=== PATIENT | male | born 1955 | race Caucasian/White ===

== ENCOUNTER → 2024-11-23 09:37 | Outpatient (BNVA) | payer MEDICARE, OTHER, SELFPAY | PROVIDERS: PCP Family Medicine; Visit Provider Student in an Organized Health Care Education/Training Program | DX: Z12.11 Encounter for screening for malignant neoplasm of colon (principal) | CPT/HCPCS: 99024; 99204 ==

== ENCOUNTER → 2024-11-28 14:43 | Outpatient (BNVA) | payer MEDICARE, OTHER, SELFPAY | PROVIDERS: PCP Family Medicine; Referring Provider Nurse Practitioner Family; Visit Provider Student in an Organized Health Care Education/Training Program | DX: M25.551 Pain in right hip (principal); M25.552 Pain in left hip; M16.11 Unilateral primary osteoarthritis, right hip | CPT/HCPCS: 73523; 99204 ==

== ENCOUNTER 2024-12-10 14:49 | Outpatient (CLI) | payer MEDICARE, OTHER, SELFPAY ==
--- NOTE | 2024-12-10 15:15 | CT_ITS ---
WS: [id number] CT RIGHT hip for [facility] procedure HISTORY: RIGHT TOTAL HIP ARTHROPLASTY-POSTERIOR COMPARISON: None available. TECHNIQUE: Protocol for [facility] total hip replacement has been obtained. This includes axial imaging from the hip joint through the knee joint. DLP: 954.95 mGy FINDINGS: No acute fracture. Osteopenia. Mild bilateral SI joint arthritis. Bilateral degenerative joint disease involving the hips, RIGHT greater than LEFT. More significant acetabular rim and osteophytic ridging around the RIGHT femoral head. RIGHT knee: Very mild narrowing of the knee joint. Slight lateral subluxation of the RIGHT patella. CT/CT hip RT [facility] [id number] IMPRESSION: CT imaging provided for [facility] robotic total knee replacement.
== END 2024-12-10 14:50 | disposition home or self-care (01) ==
LOC: RAD 14:50
PROVIDERS: PCP Family Medicine; Visit Provider Student in an Organized Health Care Education/Training Program
DX: M16.11 Unilateral primary osteoarthritis, right hip (principal); Z01.89 Encounter for other specified special examinations
CPT/HCPCS: 73700

== ENCOUNTER 2024-12-18 06:19 | Day surgery (SDC) | payer MEDICARE, OTHER, SELFPAY ==
[2024-12-18 06:36] VITALS: BP 149/82; PULSE 66; RESP 18; TEMP 36.4; O2SAT 96; BMI 41.0
--- NOTE | 2024-12-18 06:55 | ANES.PREANE2 ---
Pre-Anesthetic Assessment Height/Weight: Height 5 ft 8 in Weight 270 lb Temp Pulse Resp BP Pulse Ox O2 Del Method 97.6 F 66 18 149/82 96 Room Air 12/18/24 06:36 12/18/24 06:36 12/18/24 06:36 12/18/24 06:36 12/18/24 06:36 12/18/24 06:36 Preop Diagnosis: Screening colonoscopy Operation Date: 12/18/24 07:30 Proposed Procedures p Colonoscopy 77923 G0105 Z12.11(Not Applicable) - Lion Miller MD Was Beta Dylan taken within 24 hours: N/A Was Clonidine taken within 24 hours: N/A Last intake: Intake Last Liquid Date 12/17/24 Last Liquid Time 21:15 Last Solid Date 12/16/24 Last Solid Time 21:30 Social No alcohol and No tobacco Exam alert, oriented x 3, clear to auscultation bilaterally and regular rate & rhythm Airway Submandibular: within normal limits Cervical ROM: within normal limits Mallampati: Class III Dentition: false Comments: Comments: Large tongue Anesthetic Plan ASA status: 3 Anesthesia: MAC Other: No prior issues with anesthesia NPO since yesterday evening History of hypertension on amlodipine and lisinopril. Preop BP 149/82 Patient states he has been taking tramadol for hip pain for which he needs a hip replacement in the near future Plan for MAC anesthesia Medications/Allergies Home Medications ?Medication ?Instructions ?Recorded ?Confirmed ?Last Taken ?Type amlodipine 10 mg tablet 10 mg PO DAILY 11/23/24 12/18/24 12/17/24 History azelastine 0.05 % eye drops 2 drp ophthalmic (eye) DAILY 11/23/24 12/18/24 12/17/24 History lisinopril 20 mg tablet 20 mg PO DAILY 11/23/24 12/18/24 12/17/24 History tamsulosin 0.4 mg capsule 0.4 mg PO DAILY 11/23/24 12/18/24 12/17/24 History testosterone cypionate 200 mg/mL 200 mg IM .BIWEEKLY 11/23/24 12/18/24 12/06/24 History intramuscular oil tramadol 50 mg tablet 50 mg PO DAILY 11/23/24 12/18/24 12/17/24 History Allergies Allergy/AdvReac Type Severity Reaction Status Date / Time No Known Allergies Allergy Unverified 12/18/24 06:34 Current Medications Generic Name Dose Route Start Last Admin Trade Name Freq PRN Reason Stop Dose Admin Sodium Chloride 1,000 mls @ 15 mls/hr 12/18/24 06:29 12/18/24 06:45 Sodium Chloride 0.9% IV 12/19/24 06:28 15 mls/hr .Q24H PRN Administration COLONOSCOPY FLUIDS PFSH Anesthesia Social History Smoking and tobacco/nicotine status: former use of tobacco/nicotine
--- NOTE | 2024-12-18 07:07 | W.PM.OPSUD ---
Surgery/Procedure H&P Update DATE OF PROCEDURE: December 18, 2024 DATE H&P PERFORMED: 11/23/24 H&P UPDATE INFORMATION: I have reviewed H&P completed within last 30 days, I have examined patient prior to procedure, No changes to prior documentation and Risks and benefits of the procedure reviewed PREOP DIAGNOSIS: Screening colonoscopy PLANNED PROCEDURE: Operation Date: 12/18/24 07:30 Proposed Procedures p Colonoscopy 28113 G0105 Z12.11(Not Applicable) - Lion Miller MD
[2024-12-18 08:02] VITALS: BP 114/57; PULSE 58; RESP 18; TEMP 36.2; O2SAT 95
[2024-12-18 08:25] VITALS: BP 118/60; PULSE 64; RESP 18; O2SAT 96
--- NOTE | 2024-12-18 08:33 | ANE.PACU2 ---
Inpatient post-anesthesia follow up: Airway intact: Yes Vital signs: Temperature 97.2 F Pulse Rate 64 Respiratory Rate 18 Blood Pressure 118/60 Pulse Oximetry 96 Oxygen Delivery Me thod Room Air Oxygen Flow Rate Fraction of Inspir ed Oxygen Hydration adequate: Yes Nausea and vomiting: No Pain level: 1 Mental status: Baseline
== END 2024-12-18 08:33 | disposition home or self-care (01) ==
PROVIDERS: PCP Family Medicine; Visit Provider Student in an Organized Health Care Education/Training Program
PROC: 0DJD8ZZ Inspection of Lower Intestinal Tract, Via Natural or Artificial Opening Endoscopic (ICD-10-PCS; CPT 45378; principal; 2024-12-18 07:30)
DX: Z12.11 Encounter for screening for malignant neoplasm of colon (principal); D12.2 Benign neoplasm of ascending colon; D12.8 Benign neoplasm of rectum; I10 Essential (primary) hypertension; Z87.891 Personal history of nicotine dependence; Z80.0 Family history of malignant neoplasm of digestive organs
CPT/HCPCS: 45380; 80053; 81000; 85025; 87086; 88305; 93005; J2704; J3490; J7030

== ENCOUNTER → 2024-12-31 14:49 | Outpatient (BNVA) | payer MEDICARE, OTHER, SELFPAY | PROVIDERS: PCP Family Medicine; Visit Provider Student in an Organized Health Care Education/Training Program | DX: Z09 Encounter for follow-up examination after completed treatment for conditions other than malignant neoplasm (principal) | CPT/HCPCS: 99213 ==

== ENCOUNTER → 2025-01-01 14:16 | Outpatient (BNVA) | payer MEDICARE, OTHER, SELFPAY | PROVIDERS: PCP Family Medicine; Visit Provider Physician Assistant | DX: M16.11 Unilateral primary osteoarthritis, right hip (principal) | CPT/HCPCS: 99213 ==

== ENCOUNTER 2025-01-07 13:55 | Observation (INO) | payer MEDICARE, OTHER, SELFPAY ==
--- NOTE | 2025-01-06 16:56 | ANES.PREANE2 ---
Pre-Anesthetic Assessment Height/Weight: Height 5 ft 8 in Preop Diagnosis: hip arthritis Operation Date: 01/07/25 07:00 Proposed Procedures p Bin Robot Total Hip Arthroplasty(Right) - Perez Baca DO Was Beta Dylan taken within 24 hours: N/A Was Clonidine taken within 24 hours: N/A Social No alcohol and No tobacco Exam alert, oriented x 3, clear to auscultation bilaterally and regular rate & rhythm Airway Submandibular: within normal limits Cervical ROM: within normal limits Mallampati: Class III Dentition: false Anesthetic Plan ASA status: 3 Anesthesia: Regional (specify below) Other: No prior issues with anesthesia NPO since yesterday evening History of hypertension on lisinopril and amlodipine EKG normal sinus rhythm BMI 40 Labs reviewed from 12/18/2024 and acceptable for procedure Ambulation limited due to hip pain Plan for spinal anesthesia Medications/Allergies Home Medications ?Medication ?Instructions ?Recorded ?Confirmed ?Last Taken ?Type amlodipine 10 mg tablet 10 mg PO DAILY 11/23/24 01/07/25 01/07/25 History azelastine 0.05 % eye drops 2 drp ophthalmic (eye) DAILY 11/23/24 01/07/25 01/06/25 History lisinopril 20 mg tablet 20 mg PO DAILY 11/23/24 01/07/25 01/06/25 History tamsulosin 0.4 mg capsule 0.4 mg PO DAILY 11/23/24 01/07/25 01/06/25 History testosterone cypionate 200 mg/mL 200 mg IM .BIWEEKLY 11/23/24 01/07/25 01/04/25 History intramuscular oil tramadol 50 mg tablet 50 mg PO DAILY 11/23/24 01/07/25 01/06/25 History Allergies Allergy/AdvReac Type Severity Reaction Status Date / Time No Known Allergies Allergy Verified 01/03/25 13:27 [facility] Anesthesia Social History Smoking and tobacco/nicotine status: never used tobacco/nicotine
[2025-01-07] VITALS (32 sets, daily range): BP systolic 81–126; BP diastolic 42–78; PULSE 52–67; RESP 11–23; TEMP 36.1–37.1; O2SAT 92–100; BMI 40.3
[2025-01-07] MEDS: acetaminophen 1,000 MG/100 ML PIGGYBACK 400 MG IV ×2 (06:28→14:15)
[2025-01-07 06:52] LABS: Hematocrit 49.1 % (37-53); Hemoglobin 16.00 g/dL (11.27-16.99); Mean Corpuscular HGB Conc 32.6 g/dL (30-55); Mean Corpuscular Hemoglobin 26.9 pg (27-33); Mean Corpuscular Volume 82.5 fl (82-101); Nucleated Red Blood Cells % 0 %; Platelet Count 196 10^3/cmm (157-399); Red Blood Count 5.95 10^6/uL (3.85-5.65); White Blood Count 7.43 10^3/uL (3.29-11.43)
--- NOTE | 2025-01-07 06:55 | W.PM.OPSUD ---
Surgery/Procedure H&P Update DATE OF PROCEDURE: January 07, 2025 DATE H&P PERFORMED: 12/28/24 H&P UPDATE INFORMATION: I have reviewed H&P completed within last 30 days, I have examined patient prior to procedure and No changes to prior documentation CHANGES TO PREVIOUS DOCUMENTATION: Patient is cleared the preoperative clearance process ready proceed with right total hip arthroplasty?Bin assisted. Once again no new change in symptoms, once again verified patient has been more than 3 months out from cortisone injection this was actually intramuscular. He denies any intra-articular right hip injections in the past 3 months. This point in time patient's ready to proceed with right total hip arthroplasty?Bin robotic assisted through posterior approach all questions answered. PREOP DIAGNOSIS: Right hip DJD PRIMARY INDICATION FOR PROCEDURE: Right hip DJD PLANNED PROCEDURE: Operation Date: 01/07/25 07:00 Proposed Procedures p Bin Robot Total Hip Arthroplasty(Right) - Perez Baca DO
[2025-01-07 07:09] LABS: Anion Gap 16.0 (5-19); Blood Urea Nitrogen 11 mg/dL (8-23); Calcium 8.8 mg/dL (8.5-10.5); Carbon Dioxide 22 mmol/L (22-29); Chloride 105 mmol/L (98-107); Creatinine Clr Calc Pharmacy 106.7593; Glucose 119 mg/dL (65-115); Osmolality Calculated 287 mOsm/kg (285-295); Potassium 5.0 mmol/L (3.5-5.1); Sodium 138 mmol/L (136-145)
[2025-01-07] MEDS: ceFAZolin 3,000 MG in sodium chloride 0.9% (plus) 100 ML 200 MG IV (07:22)
[2025-01-07] MEDS: tranexamic acid 1,000 mg/10mL SDV 1000 MG IV (07:30)
--- NOTE | 2025-01-07 09:43 | XRR_ITS ---
PROCEDURE INFORMATION: Exam: XR Right Hip Exam date and time: 01/07/2025 9:44 AM Age: 69 years old Clinical indication: Device placement; Other: Right hip; Prior surgery; Surgery date: Post-operative (0-2 days); Additional info: Total RT hip TECHNIQUE: Imaging protocol: Radiologic exam of the right hip. Views: 1 view hip with pelvis when performed. COMPARISON: CT hip RT [facility] [id number] 12/10/2024 3:16 PM FINDINGS: Bones/joints: There has been placement of a metallic component in the right hip joint.. No acute fracture. Soft tissues: Intraoperative image shows large laceration in the right hip. XR/XR hip RT 1V wo/w pel [id number] IMPRESSION: 1. Operative incision right hip 2. Metallic hardware placed in the right hip in good position. 3. Otherwise negative examination
--- NOTE | 2025-01-07 10:14 | PC.NURSE ---
patient's called and updated on patient status
--- NOTE | 2025-01-07 11:20 | XRR_ITS ---
PROCEDURE INFORMATION: Exam: XR Right Hip Exam date and time: 01/07/2025 11:37 AM Age: 69 years old Clinical indication: Device placement; Other: Carmen; Prior surgery; Surgery date: Post-operative (0-2 days); Additional info: Post op carmen, do in pacu TECHNIQUE: Imaging protocol: Radiologic exam of the right hip. Views: 1 view hip with pelvis when performed. COMPARISON: CR XR hip RT 1V wo/w pel [id number] 01/07/2025 9:44 AM FINDINGS: Bones/joints: Metallic right hip arthroplasty is present in good position No acute fracture. Soft tissues: Right hip shows soft tissue edema with metallic amaris in the skin. XR/XR hip RT 2-3V wo/w pel* [id number] IMPRESSION: 1. Status post ORIF right hip . 2. Edema and metallic amaris right hip soft tissues 3. Otherwise her No acute findings.
--- NOTE | 2025-01-07 11:21 | P.BOP_ITS ---
Date of Procedure: 01/07/2025 Surgeon: Perez Baca DO Customs Appraiser(s): Michael Baca PA-C Procedure(s) performed: Right total hip arthroplasty?Bin robotic assisted (posterior approach) Findings of the procedure(s): Patient underwent procedure as planned without issues or complications taken recovery in stable condition. Estimated blood loss: 300 mL Specimen(s) removed: Femoral head and acetabular reamings removed Post-operative diagnosis: Right hip DJD
--- NOTE | 2025-01-07 11:22 | PM.OP ---
Operative Report Date of procedure: January 07, 2025 Surgeon: Perez Baca DO Business Services Associate: Michael aBca PA-C: PA was necessary for assistance in this case with leg positioning retraction and protection of neurovascular structures as well as assistance in implantation wound closure and dressing application. Procedure: Preop Diagnosis?Right hip degenerative joint disease Post-op diagnosis: Right hip degenerative joint disease Procedure done: Right total hip arthroplasty?robotic assisted Bin?posterior approach Implants: [place] total hip arthroplasty implants 60 mm cluster hole acetabular shell 6.5 mm x (20mm & 20mm) acetabular screw 6.5mm x 25mm in and out Alpha code G MDM cementless metal liner Aaron insignia hip stem high offset size 6 Alpha code G MDM +0 mm head Surgeon: Perez Baca DO Estimated blood loss: 300 mL IV fluids: 2200 mL Urine output: 450 mL Complications: None Condition: stable Disposition: floor Brief History: Patient's been seen and worked up by myself in the outpatient setting and findings consistent with Right hip degenerative joint disease. He has failed conservative treatment this is causing him severe pain and inability to perform his job from a daily aspect. We talked about his treatment options as far as nonoperative and operative intervention. he ultimately through shared decision-making would like to proceed with a Right total hip arthroplasty. we detailed out his risk benefits complications alternatives to surgical and nonsurgical treatment options. Understanding his risk for surgery he elects to proceed with Right total hip arthroplasty robotic assisted Bin utilizing a?posterior approach. All questions answered. He elects proceed with surgery today. Procedure: Patient was seen evaluate in preoperative holding area.? Consent was reviewed and signed with patient.? Correct extremity was then marked.? Patient seen evaluate by anesthesia department once cleared for surgery pt was taken back to the operative suite.? Patient underwent spinal anesthesia per the anesthesia department.? This point time pt was then placed on the operative suite and table.? Pt was then placed in lateral decubitus patient worked with the Right hip up.? Patient was secured in the lateral decubitus position with pegboard. All bony prominences well-padded he was properly secured to the bed.? At this point time the Right lower extremity was then prepped and draped in standard orthopedic fashion with care not to drape out the iliac wing for pelvic array placement.? Final timeout performed.? Patient received appropriate preoperative antibiotics. Started off with establishment of my pelvic array pins.? A small longitudinal incision was made directly over the iliac wing.? Sharp scalpel excision through skin and subcutaneous tissue directly onto bone.? Next I then loaded my pelvic pin.? This was then drilled through the iliac wing corridor with excellent fixation.? Next I then loaded the guide which was placed directly onto bone and then subsequently placed 2 more pins to secure fixation.? Next the pelvic array was then sent had excellent visualization with the Bin robot and was secured. EKG pad was placed on the distal lateral aspect of the femur and sterile aseptic technique and use as my distal reference point. Next I proceeded with my standard?posterior approach.? Sharp scalpel through skin and subcutaneous tissue this was centered over the greater trochanter.? I then utilized a Liriano elevator over the gluteus jerson fascia.? Next the fascia was then split longitudinally with bipolar electrocautery.? Next a Charnley retractor was then placed.? All bone was then placed into the abductors.? A standard full-thickness release of the piriformis and the short external rotators along with the capsule to grade 1 full thick sleeve for later repair was then placed straight down to the lesser trochanter.? Lesser trochanter was then subsequently identified.? Prior to dislocating the hip we then placed our greater trochanter femur checkpoint.? We marked our appropriate checkpoint for referencing on pelvic array.? At this point in time we then established both of our checkpoints as well as referencing for leg lengths I utilized the EKG pad as my distal reference point. The legs were marked and traced to have appropriate position on the drapes to allow for accurate reading.? Preoperative leg lengths set. Once this was then established I then proceeded with dislocation of the femoral head.? At this point Hohmann's were then placed superiorly and inferiorly along the femoral neck..? The sciatic nerve was protected throughout this case.? At this point time I then utilized the Bin robot and referencing point to reference different aspects along the femoral head and neck for my appropriate neck length.? These were referenced on the inferior mid substance as well as up into the superior shoulder of the femoral neck.? This marked my oscillating saw was used to make my femoral neck cut.? Femoral head was then removed. Next the leg was placed in appropriate position and my anterior and?posterior acetabular retractors then placed.? Next I excised the labrum and then remove the pulvinar.? I did do a small release of the inferior capsule which was severely taut to allow for easier placement of my reamers as well as reduction.? Acetabulum was thoroughly irrigated. At this point in time keeping my retractors in place I subsequently loaded up the Macrocosm robot for my acetabular reaming.?? Next I then set my 58 reamer under the Bin robot and subsequently held this with appropriate preplanned preop planned version of 40 degrees of abduction angle as well as 20 degrees of anteversion.? The preoperative plan was between a 58 and a 60 mm. After reaming the 58 to the appropriate depth I still felt as though there was sclerotic bone on the periphery that a 60 would accommodate and subsequently I agree 60 mm cup which had excellent purchase through the Bin robot. I then verified good positioning and removal of the sclerotic bone and had good bleeding bone circumferentially was satisfied with the 60 mm ream. We opened up the acetabular shell clusterhole of the 60 mm Aaron this was then loaded onto my impacting system and then I subsequently impacted this to appropriate depth.? During the impacting process it appeared one of the arrays did slightly loosen which threw off the impacting process just by a few millimeters which this was then subsequently checked. In order to confirm what the robot was reading I then subsequently did bring in a single full fluoroscopy flatplate x-ray just to confirm appropriate appropriate cup placement which was again confirmed. There was a small space in the anterior medial but feel this was likely secondary to a slightly deeper ream with a 58 cup just for medializing to the cotyloid fossa. I then finalize my impaction and then took final degrees measurements after the cup was impacted into place which again confirmed to being 41 degrees abduction by 20 degrees of anteversion. This was in satisfactory position I then confirmed with my sucker tip that the central hole was on bone. This was then removed from the robot and I used the Bin probe at the center of the cup to confirm on the CT scan?that this was down on bone which it was.? Next I then drilled and placed 2 acetabular screws with excellent fixation these were drilled and measured to be 20 mm and 20 mm this was in the?posterior superior aspect of the acetabulum had excellent bite and fixation.? Originally tried to place a 25 mm however this screw had threads that were starting to strip and subsequently removed this and placed the 20 mm for my second screw these had excellent fixation and the cup was then stressed and once again confirmed to have excellent press-fit fixation. next, opened the alpha code G MDM cementless liner then subsequently placed in appropriate position and impacted into place.?? At this point time I then utilized a small rongeur to clear off the shoulder of the femoral neck to clear out the soft tissue envelope for my box osteotome.? Next box osteotome was used a canal finder was placed as well as a lateral lysing rattail rasp.? Once I was appropriately lateralized I then sequentially broached up to a size 6 femoral stem.? This was impacted to appropriate depth and flushed with my femoral neck cut.? This point I loaded a high offset with +0 mm neck and subsequently reduced the hip.? At this point in time the hip was taken through range of motion before evaluating with the robot on leg lengths.? Patient appeared to have good tension on his musculature. the hip was taken through range of motion and had excellent stability with hip flexion and internal rotation with no evidence of instability had an appropriate shuck.? This point time utilized the Macrocosm probe from our femur checkpoint down to distal checkpoint. Satisfied with this trial implants, at this point I dislocated the hip and then called for my final implants with excellent stability in all planes.? Opened up a size 6 femoral [place] insignia high offset.? My trials were then removed and then subsequently impacted my insignia hip stem high offset to the same level.? This point in time I trialed up to a +0 mm neck length which helped match with Bin robotic assistance had appropriate leg lengths comparative to the contralateral hip and this was confirmed clinically as well as had excellent stability I felt as though this was best combination with leg lengths being equal as well as with stability and elected for the final +0 mm MDM femoral head. Final MDM femoral head component was then opened and the trunnion was dried and this was impacted with excellent fixation and the hip was subsequently reduced.? We measured our final leg lengths which were appropriate patient had excellent stability in all ranges of motion.? This point time a robotic pins and checkpoints were removed.? I remove the femur checkpoint as well as my pelvic array and iliac wing pins.? Appropriate counts were then made.? This point time thoroughly irrigated the wound bed with pulse lavage.? Vancomycin powder was then sprinkled into the wound bed.? I then performed a standard capsular and external rotator repair utilizing #5 Ethibond and this was tied and repaired through bone tunnels hip, sciatic nerve was protected throughout this portion of the case. Was then kept in abduction external rotation and subsequently closed the fascial layer with Ethibond suture as well as running strata fix suture.? I then closed the deep subcutaneous layer as well as superficial subcutaneous layer with running strata fix suture as well as 3-0strata fix for skin.? Petar was then placed over the skin.? I then irrigated the pelvic array pin site.? There is were then closed with interrupted 0, 2-0 Vicryl suture and Monocryl as well as Prineo glue for the skin.? Incisions were then covered with radha and Silverlon dressing.? Patient was awakened from anesthesia and taken to PACU in stable condition Disposition: Patient taken to PACU in stable condition.? Patient will receive appropriate discharge instructions as well as DVT prophylaxis and pain medication.? Patient will be admitted to the floor for observation should be evaluated by the internal medicine team for medical management.? Patient received appropriate DVT prophylaxis as well as pain medication PT/OT weightbearing as tolerated Right lower extremity with?posterior hip precautions,?Postoperative Abx and TXA.? We will follow-up with patient in the office in 2 weeks.? Patient understands agrees with current plan.? All questions answered.
--- NOTE | 2025-01-07 11:27 | PM.PACU ---
PACU note Narrative: Patient is a 69-year-old male who just underwent a right total hip arthroplasty. Pt transferred to PACU in stable condition. Dressing is dry. Somnolent but arousable. Pt can wiggle toes. Distal pulses are palpable toes are warm and well-perfused. Cap refill is normal and under 2 seconds. Unable to do any further motor or sensory assessment due to residual anesthesia. Pain is controlled. Exam: somnolent, arousable Disposition: admitted
[2025-01-07] MEDS: fentaNYL 50 mcg/mL INJ 2mL IVP ×2 (11:41→12:25)
[2025-01-07] MEDS: oxyCODONE 5 mg IR Tab/Cap PO ×3 (13:31→20:56)
--- NOTE | 2025-01-07 14:00 | ANE.PACU2 ---
Inpatient post-anesthesia follow up: Airway intact: Yes Vital signs: Temperature 99.2 F Pulse Rate 75 Respiratory Rate 20 Blood Pressure 151/73 Pulse Oximetry 93 Oxygen Delivery Me thod Room Air Oxygen Flow Rate 6 Fraction of Inspir ed Oxygen Hydration adequate: Yes Nausea and vomiting: No Pain level: 1 Mental status: Baseline
[2025-01-07] MEDS: ceFAZolin 3,000 MG in sodium chloride 0.9% (plus) 50 ML 100 MG IV (15:05)
[2025-01-07] MEDS: tranexamic acid 1,000 MG/100 ML PREMIX 600 MG IV (15:40)
[2025-01-07] MEDS: calcium carb-vit d 600mg/400unit 1 Tablet 1 EACH PO (16:10)
[2025-01-07] MEDS: sennosides-docusate Tablet 2 TAB PO (16:10)
[2025-01-07] MEDS: chlorhexidine gluconate 0.12% Btl 473 mL 30 ML MUCOUS MEM ×2 (16:12→22:36)
[2025-01-07] MEDS: mupirocin oint 22 gm 1 APPLIC NASAL (16:12)
--- NOTE | 2025-01-07 16:41 | PM.CONSULT ---
Providers/Reason For Consult Consulting Physician/Specialty*: PATIENCE ARMIDA MARIE--hospitalist Reason for Consult*: Medical management of high blood pressure BPH Requesting Physician: KEKE SIMMONS DO Attending Physician: Perez Simmons DO--- Surgeon Primary Care Provider: Jesscia Decker DO History of Present Illness History of Present Illness Umer Sauceda is a 69 year old male with medical history significant for hypertension on lisinopril and Novavax, history of BPH on Flomax who had presented to the orthopedic service with complaints of ongoing right hip pain requiring surgical intervention after other medical treatment had failed. Patient then was scheduled by the primary team to have a right total hip arthroplasty today. Dr. Simmons had consulted me postoperatively to assist in the medical management of the patient. I had gladly accepted to participate in the care of his patient. Patient had not moved from recovery room to surgical floor room #272 bed 1. To continue medical care. Patient had been noted to be battling with a right hip DJD Patient has been seen and evaluated. Patient is hemodynamically stable. Vital sign at this time of evaluation is blood pressure 102/66 respiration 16 pulse 67 pulse oximetry on room air is 95%. Patient verbalized that the blood pressure is so too good to wear she can even take her medication because of fear of getting the blood pressure lower than desired. Patient is in good spirits with cheerful disposition fully awake alert oriented x 3 and was happy that he had his surgery Review of Systems Narrative: System review where significantly for musculoskeletal system. Post op total right right hip with pain Medications/Allergies Home Medications ?Medication ?Instructions ?Recorded ?Confirmed ?Last Taken ?Type amlodipine 10 mg tablet 10 mg PO DAILY 11/23/24 01/07/25 01/07/25 History azelastine 0.05 % eye drops 2 drp ophthalmic (eye) DAILY 11/23/24 01/07/25 01/06/25 History lisinopril 20 mg tablet 20 mg PO DAILY 11/23/24 01/07/25 01/06/25 History tamsulosin 0.4 mg capsule 0.4 mg PO DAILY 11/23/24 01/07/25 01/06/25 History testosterone cypionate 200 mg/mL 200 mg IM .BIWEEKLY 11/23/24 01/07/25 01/04/25 History intramuscular oil tramadol 50 mg tablet 50 mg PO DAILY 11/23/24 01/07/25 01/06/25 History Allergies Allergy/AdvReac Type Severity Reaction Status Date / Time No Known Allergies Allergy Verified 01/03/25 13:27 Current Medications Generic Name Dose Route Start Last Admin Trade Name Freq PRN Reason Stop Dose Admin Calcium Carbonate 1 each 01/07/25 17:00 01/07/25 16:10 Calcium Carb-Vit D 600mg/400unit 1 Tablet PO 1 each BID ARIA Administration Chlorhexidine Gluconate 30 ml 01/07/25 17:00 01/07/25 16:12 Chlorhexidine Gluconate 0.12% Btl 473 Ml MUCOUS MEM 30 ml QID ARIA Administration Acetaminophen 1,000 mg in 100 mls @ 400 mls/hr 01/07/25 14:30 01/07/25 14:15 Acetaminophen IV 01/08/25 06:44 400 mls/hr Q8H ARIA Administration Lactated Ringer's 1,000 mls @ 100 mls/hr 01/07/25 13:54 01/07/25 14:14 Lactated Ringers IV 100 mls/hr .Q10H ARIA Administration Cefazolin Sodium 3,000 mg/ 50 mls @ 100 mls/hr 01/07/25 15:00 01/07/25 15:05 Sodium Chloride IV 01/08/25 07:29 100 mls/hr Q8H ARIA Administration Protocol Ketorolac Tromethamine 15 mg 01/07/25 13:54 01/07/25 14:15 Ketorolac 30 Mg/Ml Inj IVP 15 mg Q6H PRN Administration MODERATE TO SEVERE PAIN Mupirocin 1 applic 01/07/25 17:00 01/07/25 16:12 Mupirocin Oint 22 Gm NASAL 01/12/25 16:59 1 applic BID ARIA Administration Oxycodone HCl 5 mg 01/07/25 13:54 01/07/25 16:10 Oxycodone 5 Mg Ir Tab/Cap PO 5 mg Q4H PRN Administration MODERATE PAIN Polysaccharide Iron Complex 150 mg 01/07/25 18:00 01/07/25 16:11 Iron Polysaccharide Complex 150 Mg Capsule PO 150 mg BIDWM ARIA Administration Senna/Docusate Sodium 2 tab 01/07/25 17:00 01/07/25 16:10 Sennosides-Docusate Tablet PO 2 tab BID ARIA Administration PFSH Acute PFSH: Social History Smoking and tobacco/nicotine status: never used tobacco/nicotine Vitals/I&O/Wt Last Vital Signs Temp 98.1 F 01/07/25 15:00 Pulse 61 01/07/25 15:00 Resp 14 01/07/25 16:10 BP 100/58 01/07/25 15:00 Pulse Ox 92 01/07/25 15:00 O2 Del Method Room Air 01/07/25 13:57 O2 Flow Rate 6 01/07/25 11:33 01/07/25 01/07/25 01/07/25 06:59 14:59 22:59 Intake Total 100 / 100 2300 / 2300 Output Total 1000 / 1000 Balance 100 / 100 1300 / 1300 Weight last 48 hrs Weight 120.202 kg Physical Exam Narrative: Patient in bed watching television comfortable with current pain at this time Parameters written for patient to have pain medication since the blood pressure is barely at 100 systolic HEENT normocephalic atraumatic neck neck is supple cardiovascular heart rate is regular lungs are pretty much clear abdomen soft nontender nondistended unremarkable extremities are intact no edema. Patient right hip is intact with surgical wound no bleeding. Patient has ice pack to the site. Affected extremity has good pulses. Neurology has no focality lab studies lab studies reviewed and noted. Urinary Catheter Management: Garza: Cath Placed During This Visit: yes, but has since been removed by the nurse Reason for Continuing Indwelling Catheter: Decision to DC Catheter Urinary Catheter Date of Insertion: 01/07/25 Urinary Catheter Time of Insertion: 07:41 Date Urinary Catheter Removed: 01/07/25 Time Urinary Catheter Discontinued: 14:22 Data 01/07/25 06:23 01/07/25 06:23 A&P Assessment and plan 1. Hypertension: 2. BPH (benign prostatic hyperplasia): 3. Postoperative pain, acute, hip: Plan: History of high blood pressure - Patient is marginally normotensive at this time barely a systolic of 100, - Patient status post surgery with anesthesia - Will continue to treat and monitor - Keep patient normotensive - Give parameter to where it would be safe for patient to have pain medication for postop pain management Without lowering the blood pressure beyond desired level BPH - Monitor make sure patient is voiding - Continue to follow through Postop right hip arthroplasty with pain -Continue pain management as blood pressure tolerates -Patient however is doing well and comfortable with surgical pain at this time -Will continue to maintain good comfort level and keep patient normotensive I appreciate Dr. Simmons for allowing me to participate in the care of his patient I will follow-up in the morning for care. PDMP PDMP Reviewed: Not Reviewed Coding Level of Care Code 76568 Diagnoses Hypertension I10 BPH (benign prostatic hyperplasia) N40.0 Postoperative pain, acute, hip G89.18; M25.559 Time Spent (min) 60
[2025-01-07] MEDS: acetaminophen 1,000 MG/100 ML PIGGYBACK 100 MG IV (22:29)
[2025-01-07] MEDS: ceFAZolin 3,000 MG in sodium chloride 0.9% (plus) 50 ML 12.5 MG IV (22:30)
[2025-01-08] VITALS (8 sets, daily range): BP systolic 127–151; BP diastolic 69–77; PULSE 67–75; RESP 16–20; TEMP 36.3–37.3; O2SAT 92–97
[2025-01-08] MEDS: calcium carb-vit d 600mg/400unit 1 Tablet 1 EACH PO (04:53)
[2025-01-08] MEDS: mupirocin oint 22 gm 1 APPLIC NASAL (04:53)
[2025-01-08] MEDS: sennosides-docusate Tablet 2 TAB PO (04:53)
[2025-01-08] MEDS: chlorhexidine gluconate 0.12% Btl 473 mL 30 ML MUCOUS MEM ×2 (04:54→11:58)
[2025-01-08] MEDS: multivitamin therapeutic Tablet 1 TAB PO (04:54)
[2025-01-08] MEDS: oxyCODONE 5 mg IR Tab/Cap PO ×3 (04:56→13:42)
[2025-01-08 05:02] LABS: Hematocrit 38.5 % (37-53); Hemoglobin 12.30 g/dL (11.27-16.99); Mean Corpuscular HGB Conc 31.9 g/dL (30-55); Mean Corpuscular Hemoglobin 27.0 pg (27-33); Mean Corpuscular Volume 84.4 fl (82-101); Nucleated Red Blood Cells % 0 %; Platelet Count 163 10^3/cmm (157-399); Red Blood Count 4.56 10^6/uL (3.85-5.65); White Blood Count 11.43 10^3/uL (3.29-11.43)
[2025-01-08 05:28] LABS: Anion Gap 14.6 (5-19); Blood Urea Nitrogen 14 mg/dL (8-23); Calcium 7.9 mg/dL (8.5-10.5); Carbon Dioxide 22 mmol/L (22-29); Chloride 104 mmol/L (98-107); Creatinine Clr Calc Pharmacy 77.8013; Glucose 124 mg/dL (65-115); Osmolality Calculated 284 mOsm/kg (285-295); Potassium 4.6 mmol/L (3.5-5.1); Sodium 136 mmol/L (136-145)
[2025-01-08] MEDS: acetaminophen 1,000 MG/100 ML PIGGYBACK 100 MG IV (06:14)
[2025-01-08] MEDS: ceFAZolin 3,000 MG in sodium chloride 0.9% (plus) 50 ML 12.5 MG IV (06:14)
[2025-01-08] MEDS: APIXABAN 2.5 MG TABLET PO (08:23)
--- NOTE | 2025-01-08 09:53 | PC.CHAP ---
Pastoral Care Encounter/Spiritual Assessment Type of Contact [] Declined oil field tester visit [] Patient/Family/Request visit [] Outpatient visit [] Follow-up visit [] Physician referral [] Code/Alert [x] Routine visit [] Staff referral [] Actively dying [] Patient sleeping [] Family support [] [] Out of room [] Palliative care [] [] Receiving care in room [] Pre-surgical visit [] Trauma [] Long length of stay [] ICU visit [] Other: Relational/Emotional Strength [x] Patient feels connected with others/family/visitors/staff [x] Distress [] Loneliness/isolation [] Abandonment Spirituality of Patient [x] Person of Sofie [x] Attends Nondenominational of their Sofie [x] Believes in Prayer [x] Reads Bible or Christianity materials [] There are Spiritual issues to be addressed Small Animal Caretaker Interventions [x] Prayer [x] Active listening [x] Non-anxious presence [x] Spiritual/emotional support [] Crisis/trauma care [] Spiritual counseling [] Bereavement support [] Provided bereavement packet [] Provided Bible/devotional materials [] Provided toy/stuffed animal, coloring book to patient or family member [] Provided Communion [] Anointing/[place] [] Salvation [x] Completed spiritual assessment [] Other: Impact on Illness or Injury [] Angry [] Fearful [] Anxious [] Often cries [] Exhaustion [] Unable to work [] Unable to attend baptist [] Unable to walk/stand [] Unable to read [] Unable to drive [] Unable to eat/drink [] Unable to sleep [] Unable to be with family [] Patient intubated [] Other: Summary Time spent with patient 5 min
--- NOTE | 2025-01-08 12:37 | PM.DCS ---
Discharge Providers Date of Admission: 01/07/25 13:55 Date of Discharge: January 08, 2025 Attending Provider at Admission: Perez Baca DO Attending Provider at Discharge: Perez Baca DO Consults: Hospitalist Primary Care Provider: Jessica Decker DO Diagnoses at Discharge Discharge Diagnosis 1. Status post hip replacement: 2. Hypertension: 3. BPH (benign prostatic hyperplasia): 4. Postoperative pain, acute, hip: Reason for Visit Reason for Visit: M16.11 Brief History: Status post right total hip arthroplasty?Bin robotic assisted Hospital Course Hospital Course Patient was brought to the hospital through the preoperative holding area with plan for right total hip arthroplasty for [right] hip dengerative joint disease. Once cleared by anesthesia for surgery subsequently was taken back to the operative suite underwent anesthesia per the anesthesia department and then underwent [right] total hip arthroplasty with Bin robotic assistance posterior approach without any complications. Patient was then subsequently taken back to PACU in stable condition recovering well. Once recovered, patient was then subsequently admitted to the floor postoperatively. Internal medicine was consulted for medical management assistance. Patient weightbearing as tolerated to the right lower extremity, posterior hip precautions. PT/OT. Pain control. DVT prophylaxis. Postoperative antibiotics and TXA. dressing was change as needed. Internal medicine was on board and appreciate their medical management and assistance. Pt was determined on postoperative day [1 ] the patient was stable for discharge from orthopedic as well as internal medicine standpoint. Patient's labs were monitored daily. Patient will receive appropriate pain medication as well as DVT prophylaxis postoperatively. Appropriate discharge instructions as well. Patient was then discharged in stable condition. Patient will discharge home. Pt will follow-up with Orthopedics in the office in 2 weeks. Patient understands and agrees with current plan. All questions answered. Understands there is any issues or concerns and contact the office. Physical Exam Narrative: Right hip examination: Both dressing on the right hip are in place, clean dry and intact. No evidence of saturation. Patient has normal postoperative swelling and tenderness to palpation to the hip. Compartments are soft compressible,'s calf soft and nontender. Sensations intact to light touch distally. Distal pulses are palpable. Patient is able to wiggle toes as well as plantarflex and dorsiflex ankle. Urinary Catheter Management: Garza: Cath Placed During This Visit: yes, but has since been removed by the nurse Reason for Continuing Indwelling Catheter: Decision to DC Catheter Urinary Catheter Date of Insertion: 01/07/25 Urinary Catheter Time of Insertion: 07:41 Date Urinary Catheter Removed: 01/07/25 Time Urinary Catheter Discontinued: 14:22 Discharge Data Studies Completed and Pending Completed Studies During Hospitalization Category Date Time Status XR hip RT 1V wo/w pel [id number] Stat Exams 01/07/25 09:43 Completed XR hip RT 2-3V wo/w pel* [id number] Routine Exams 01/07/25 11:20 Completed Pending at discharge Category Date Time Status Basic Metabolic Panel AM LABS Lab 01/09/25 04:00 Ordered Basic Metabolic Panel AM LABS Lab 01/10/25 04:00 Ordered Complete Blood Count w/Auto AM LABS Lab 01/09/25 04:00 Ordered Complete Blood Count w/Auto AM LABS Lab 01/10/25 04:00 Ordered Radiology Impressions Hip X-Ray 01/07/25 09:43 IMPRESSION: 1. Operative incision right hip 2. Metallic hardware placed in the right hip in good position. 3. Otherwise negative examination Hip/Pelvis X-Ray 01/07/25 11:20 IMPRESSION: 1. Status post ORIF right hip . 2. Edema and metallic amaris right hip soft tissues 3. Otherwise her No acute findings. Laboratory Results WBC 11.43 10^3/uL (3.29-11.43) 01/08/25 04:40 RBC 4.56 10^6/uL (3.85-5.65) 01/08/25 04:40 Hgb 12.30 g/dL (11.27-16.99) 01/08/25 04:40 Hct 38.5 % (37-53) 01/08/25 04:40 MCV 84.4 fl (82-101) 01/08/25 04:40 MCH 27.0 pg (27-33) 01/08/25 04:40 MCHC 31.9 g/dL (30-55) 01/08/25 04:40 RDW 15.9 % (12.1-15.1) H 01/08/25 04:40 Plt Count 163 10^3/cmm (157-399) 01/08/25 04:40 MPV 11.0 fL (7.4-10.4) H 01/08/25 04:40 Neut % (Auto) 80.5 % 01/08/25 04:40 Lymph % (Auto) 6.0 % 01/08/25 04:40 Winkler % (Auto) 12.8 % 01/08/25 04:40 Eos % (Auto) 0.2 % 01/08/25 04:40 Baso % (Auto) 0.1 % 01/08/25 04:40 Neut # (Auto) 9.20 10^3/uL (1.8-7.7) H 01/08/25 04:40 Lymph # (Auto) 0.7 10^3/uL (0.8-4.8) L 01/08/25 04:40 Winkler # (Auto) 1.5 10^3/uL (0.2-0.9) H 01/08/25 04:40 Eos # (Auto) 0.0 10^3/uL (0.0-0.8) 01/08/25 04:40 Baso # (Auto) 0.0 10^3/uL (0.0-0.1) 01/08/25 04:40 Nucleated RBC % (auto) 0 % 01/08/25 04:40 Nucleated RBCs # 0.0 /100WBC 01/08/25 04:40 Sodium 136 mmol/L (136-145) 01/08/25 04:40 Potassium 4.6 mmol/L (3.5-5.1) 01/08/25 04:40 Chloride 104 mmol/L (98-107) 01/08/25 04:40 Carbon Dioxide 22 mmol/L (22-29) 01/08/25 04:40 Anion Gap 14.6 (5-19) 01/08/25 04:40 BUN 14 mg/dL (8-23) 01/08/25 04:40 Creatinine 1.1 mg/dL (0.7-1.2) 01/08/25 04:40 GFR Calculation Not Reportable 01/08/25 04:40 Glucose 124 mg/dL (65-115) H 01/08/25 04:40 Calculated Osmolality 284 mOsm/kg (285-295) L 01/08/25 04:40 Calcium 7.9 mg/dL (8.5-10.5) L 01/08/25 04:40 Blood Type A Positive 01/07/25 07:45 Rho(D) Type Rh positive 01/07/25 07:45 Antibody Screen Negative 01/07/25 07:45 Vitals Last Vital Signs Temp 97.6 F 01/08/25 11:11 Pulse 75 01/08/25 11:11 Resp 20 H 01/08/25 11:11 BP 148/77 01/08/25 11:11 Pulse Ox 93 01/08/25 11:11 O2 Del Method Room Air 01/08/25 11:11 O2 Flow Rate 6 01/07/25 11:33 Discharge Plan Discharge Patient Disposition: Home Health Service Condition: Stable Prescriptions: New Eliquis 2.5 mg tablet 2.5 mg PO BID 35 Days Qty: 70 0RF cyclobenzaprine 10 mg tablet 10 mg PO TID PRN (Reason: muscle spasm) 7 Days Qty: 21 0RF cefadroxil 500 mg capsule 500 mg PO BID 7 Days Qty: 14 0RF oxycodone 5 mg tablet 5 mg PO Q4H PRN (Reason: pain postop) 7 Days Qty: 42 0RF calcium carbonate-vitamin D3 [Calcium 600 + D(3)] 600 mg-10 mcg (400 unit) tablet 1 tab PO DAILY 30 Days Qty: 30 0RF Continued azelastine 0.05 % drops 2 drp ophthalmic (eye) DAILY lisinopril 20 mg tablet 20 mg PO DAILY tamsulosin 0.4 mg capsule 0.4 mg PO DAILY amlodipine 10 mg tablet 10 mg PO DAILY testosterone cypionate 200 mg/mL oil 200 mg IM .BIWEEKLY Discontinued tramadol 50 mg tablet 50 mg PO DAILY Pigs Feet Finisher OK for DC: Orthopedics Discharge Order = DC NOW: Discharge Order (Routine); Ordered 01/08/25 Ordered By: Perez Baca Referrals: Michael Baca PA [Physician Liquid Hydrogen Plant Operator, Orthopedics] - 01/22/25 3:30 pm Jessica Decker DO [Primary Care Provider, Family Practice] - 01/11/25 11:00 am Discharge Diet: Regular Discharge Activity: Limit activity as instructed and Use walker/crutches as instructed Patient Instructions: Cyclobenzaprine (By mouth), Apixaban (By mouth), Total Hip Replacement (GEN), Opioid Safety, Post Anesthesia Care, Patient Portal & Jen Instructions Activity Restrictions/Additional Instructions: Orthopedic discharge instructions Right lower Gabi Dressing--Keep dressing on and dry. After 3 days you can remove some of the dressing and shower. disconnect battery pack when showering. Gabi dressing will stay on until follow up appt in 2 weeks. The battery pack for the dressing will at 5-7 days. Battery pack can be removed and discarded once batteries . Right upper silverlon dressing- leave Silverlon bandage dressings on in place for 7 days after that may rinse incisions with warm soapy water pat dry and redress with a dry dressing(Okay to change after 1 week? New dressing will be provided At discharge.) Okay to shower over dressings if they do become wet these should be removed and new dressings applied Weight-bear as tolerated to operative lower extremity Posterior hip precautions as instructed by physical therapy--posterior avoid hip flexion past 90 degrees, adduction, avoid internal rotation When sleeping or lying in bed in supine position use abduction pillow to prevent legs from crossing midline Ice as needed for pain and swelling Take pain medication as prescribed Take antinausea medication as needed Take antibiotic as prescribed for infection prophylaxis May supplement for pain with Tylenol [id number] as needed(1000 mg every 8 hours-do not exceed more than 3000mg in 24-hour period) Supplement with Citracal vitamin D for bone health and healing Pain medication can cause constipation. take [id number] stool softeners and or MiraLAX. Take blood thinner as prescribed (Eliquis) Follow-up in the orthopedic office in 2 weeks Contact the office for any questions or concerns Discharge Attestations Time Spent in Discharge Care*: less than 30 min Quality Metrics Clinical Quality Measures [ No reported AMI, CVA or VTE this stay] Coding Level of Care Code Acute Code for Chg Fwd Diagnoses Status post hip replacement Z96.649 Hypertension I10 BPH (benign prostatic hyperplasia) N40.0 Postoperative pain, acute, hip G89.18; M25.559 Time Spent (min) 25
== END 2025-01-08 13:59 | disposition home health service (06) ==
LOC: MEDSURG 21:01
PROVIDERS: Physician Assistant; Admitting Provider Student in an Organized Health Care Education/Training Program; PCP Family Medicine; Visit Provider Student in an Organized Health Care Education/Training Program
PROC: 8E0Y0CZ Robotic Assisted Procedure of Lower Extremity, Open Approach (ICD-10-PCS; CPT 27130; principal; 2025-01-07 07:00)
DX: M16.11 Unilateral primary osteoarthritis, right hip (principal); I10 Essential (primary) hypertension; N40.0 Benign prostatic hyperplasia without lower urinary tract symptoms
CPT/HCPCS: 27130; 20985; 36415; 51702; 73501; 73502; 80048; 85025; 86850; 86900; 97116; 97161; 97167; 97530; 97535; C1776; G0378; J0131; J0690; J1885; J2250; J2371; J2405; J2704; J3010; J3373; J3490; J7030; J7120; J9999

== ENCOUNTER → 2025-01-22 15:32 | Outpatient (BNVA) | payer MEDICARE, OTHER, SELFPAY | PROVIDERS: PCP Family Medicine; Visit Provider Physician Assistant | DX: Z98.890 Other specified postprocedural states (principal); Z96.649 Presence of unspecified artificial hip joint | CPT/HCPCS: 73502; 99024 ==

== ENCOUNTER 2025-02-28 11:47 | Emergency (ER) | payer MEDICARE, OTHER, SELFPAY ==
[2025-02-28 12:02] VITALS: BP 174/93; PULSE 58; TEMP 36.4; O2SAT 96; BMI 41.8
--- NOTE | 2025-02-28 12:37 | PC.NURSE ---
this nurse spoke with [facility] staff, per staff pt was prescribed Xanax 20 tabs, 1mg and took them all within 11 days, when pt returned for another prescription they stated they could not prescribe more. per [facility] staff, pt was under the impression he could take more tabs as needed throughout the day rather than prescribed daily dose. [facility] states pt was agitated and defensive regarding situation, [facility] staff called Dr. Ruffin, [place] advised pt go to ED d/t being unable to prescribe more Xanax and pt being unable to quit abruptly. per [facility] staff Dr. Ruffin states he would evaluate pt if ED provider felt necessary.
[2025-02-28 12:55] VITALS: BP 144/80; PULSE 60; RESP 18; O2SAT 96
--- NOTE | 2025-02-28 13:03 | W.ED.ANXIETY ---
HPI - Anxiety General: Chief Complaint: Anxiety Stated Complaint: panic attacks Time Seen by Provider: 02/28/25 12:39 Source: patient Mode of arrival: ambulatory Limitations: no limitations History of Present Illness: 69-year-old male presents here with anxiety states he been having anxiety more so since he had had hip surgery a little over a month ago. States that he had been on some pain meds and had a short prescription of Xanax but is currently on no meds. He denies SI or HI he denies any pain anywhere denies any vomiting or diarrhea. Related Data Home Medications ?Medication ?Instructions ?Recorded ?Confirmed amlodipine 10 mg tablet 10 mg PO DAILY 11/23/24 01/07/25 azelastine 0.05 % eye drops 2 drp ophthalmic (eye) DAILY 11/23/24 01/07/25 lisinopril 20 mg tablet 20 mg PO DAILY 11/23/24 01/07/25 tamsulosin 0.4 mg capsule 0.4 mg PO DAILY 11/23/24 01/07/25 testosterone cypionate 200 mg/mL 200 mg IM .BIWEEKLY 11/23/24 01/07/25 intramuscular oil hydroxyzine HCl 25 mg tablet mg PO 01/22/25 01/22/25 trazodone 100 mg tablet mg PO 01/22/25 01/22/25 Previous Rx's ?Medication ?Instructions ?Recorded hydrocodone 5 mg-acetaminophen 325 1 tab PO Q6H PRN pain 7 days #28 02/13/25 mg tablet tabs Allergies Allergy/AdvReac Type Severity Reaction Status Date / Time No Known Allergies Allergy Verified 02/28/25 12:11 Review of Systems Psych: Reports: anxiety [facility] PFSH: Social History Smoking and tobacco/nicotine status: never used tobacco/nicotine Physical Exam Const: COMMON NORMALS: no acute distress, patient oriented x3 and healthy appearing HENMT: COMMON NORMALS: normocephalic and atraumatic HEAD & SCALP: normocephalic and atraumatic Eye: COMMON NORMALS: conjunctivae normal CONJUNCTIVA: Yes conjunctivae normal Neck/C-Spine: COMMON NORMALS: full ROM and supple Chest: COMMONS NORMALS: normal inspection of the chest Resp: COMMON NORMALS: normal respiratory effort Cardio: COMMON NORMALS: regular rate RATE: regular rate Extremity: COMMON NORMALS: normal to inspection and full ROM Neuro: COMMON NORMALS: patient oriented x3, moves all extremities and no focal motor deficits Psych: COMMON NORMALS: mental status grossly normal, Normal thought process present and cooperative THOUGHT PROCESS: Normal thought process present Skin: COMMON NORMALS: no rashes or lesions noted and no wounds GENERAL SKIN EXAM: no rashes or lesions noted Course Vital Signs: Vital signs: Vital Signs Temperature 97.5 F L 02/28/25 12:02 Pulse Rate 60 02/28/25 12:55 Respiratory Rate 18 02/28/25 12:55 Blood Pressure 144/80 02/28/25 12:55 Pulse Oximetry 96 02/28/25 12:55 Oxygen Delivery Me thod Room Air 02/28/25 12:55 MDM - Anxiety Medical Decision Making Patient presents here with anxiety has been going on for months. He is well-appearing here he is not having any psychosis or SI or HI. He has no signs of withdrawals here. Did speak to Dr. Ruffin of psychiatry who will discharge over to the crisis stabilization unit at this time. No radiology studies performed this visit Discharge Plan Discharge Patient Disposition: Home Clinical Impression: Anxiety Condition: Stable Prescriptions: No Action trazodone 100 mg tablet PO hydroxyzine HCl 25 mg tablet PO azelastine 0.05 % drops 2 drp ophthalmic (eye) DAILY lisinopril 20 mg tablet 20 mg PO DAILY tamsulosin 0.4 mg capsule 0.4 mg PO DAILY amlodipine 10 mg tablet 10 mg PO DAILY testosterone cypionate 200 mg/mL oil 200 mg IM .BIWEEKLY hydrocodone-acetaminophen 5-325 mg tablet 1 tab PO Q6H PRN (Reason: pain) 7 Days Qty: 28 0RF Discharge Orders: Discharge ED (Routine); Ordered 02/28/25 Ordered By: Lore Ochoa Referrals: Jessica Decker DO [Primary Care Provider, Family Practice] Discharge Diet: Advance as tolerated Discharge Activity: Resume usual activity Patient Instructions: Anxiety (ED) Print Language: Serbian Coding Level of Care Code ED Senior Gamemaster for Clay Watkins
[2025-02-28 13:09] VITALS: BP 126/82; PULSE 57; RESP 18; O2SAT 95
== END 2025-02-28 13:11 | disposition home or self-care (01) ==
PROVIDERS: Emergency Provider Emergency Medicine; PCP Family Medicine
DX: F41.9 Anxiety disorder, unspecified (principal)
CPT/HCPCS: 99282

== ENCOUNTER → 2025-03-05 15:01 | Outpatient (BNVA) | payer MEDICARE, OTHER, SELFPAY | PROVIDERS: PCP Family Medicine; Visit Provider Physician Assistant | DX: Z98.890 Other specified postprocedural states (principal); Z96.649 Presence of unspecified artificial hip joint | CPT/HCPCS: 73502; 99024 ==